=== PATIENT | female | born 1995 ===

== ENCOUNTER → 2018-10-10 | Outpatient (REF) | payer BC ==
[2018-10-10 17:13] LABS: PLATELET COUNT, AUTOMATED 271 K/uL (150-450)
== END ==
LOC: ZZSENDIN 16:17 → EDSEX 16:17
PROVIDERS: ATTEND Obstetrics & Gynecology
DX: Z36.89 Encounter for other specified antenatal screening (principal); Z3A.01 Less than 8 weeks gestation of pregnancy; R82.79 Other abnormal findings on microbiological examination of urine
CPT/HCPCS: 81001; 84436; 84443; 84481; 85025; 86592; 86703; 86762; 86850; 86900; 86901; 87088; 87340